=== PATIENT | male | born 1950 | race Caucasian/White ===

== ENCOUNTER 2016-05-04 16:04 | Inpatient (IN) | payer OTHER, MEDICARE ==
[~2016-05-04] VITALS: Ht 172.7 cm; Wt 62.5 kg
--- NOTE | 2016-05-04 16:34 | DIAGNOSTIC IMAGING REPORT ---
PROCEDURE: XR CHEST 1 VIEW INDICATION: CHEST PAIN TECHNIQUE: Portable AP view 04:27 p.m. COMPARISON: None. FINDINGS: Lungs are clear. Heart and mediastinum are normal. Thorax is normal. IMPRESSION: 1. Negative chest.
--- NOTE | 2016-05-04 18:18 | DIAGNOSTIC IMAGING REPORT ---
PROCEDURE: CTA THORAX WITH CONTRAST INDICATION: SHORTNESS OF BREATH TECHNIQUE: 92 ml of Isovue 370 was injected intravenously and axial images were obtained of the entire thorax with 3D sagittal and coronal MIP reconstructions. COMPARISON: Chest x-ray 05/04/2016 FINDINGS: No evidence of pulmonary emboli. There are 1 cm right middle lobe (image 74), 5 mm right lower lobe (image 76) and 9 mm right lower lobe nodules ( image 82). There is mild bilateral hilar and subcarinal adenopathy. No effusion. There is no aortic dissection or aneurysm. Mild coronary atherosclerosis. Heart size is normal. There is a 1 cm left hepatic lobe cyst but there are multiple additional subcentimeter hypoenhancing liver lesions, likely cysts or hemangiomas. 2.7 x 1.7 cm right and 2.8 x 2 cm left adrenal masses versus hypertrophy. Moderate degenerative changes of the spine. IMPRESSION: 1. No evidence of pulmonary emboli, aortic dissection or aneurysm 2. Mild ground-glass appearance of the lungs with mild adenopathy which may indicate post infectious changes 3. Pulmonary nodules, indeterminate. Recommend follow-up CT scan in 6 months 4. Bilateral adrenal masses/hypertrophy 5. 1 cm left hepatic lobe cyst with several additional subcentimeter hypoenhancing lesions, likely benign. 6. Results discussed with Dr. Jean-Baptiste
--- NOTE | 2016-05-04 19:18 | ED CLINICAL REPORT ---
Clinical Report - Physicians/Mid Levels [facility] [address] [place] [place] [place] [address] 05/04/2016 16:07 Patient: DHARMESH HSU Time Seen: 16:21. Arrived- By private vehicle. Historian- patient. HISTORY OF PRESENT ILLNESS Chief Complaint: CHEST PAIN. This started today and is now gone. It was abrupt in onset and has been intermittent. At its maximum, severity described as moderate. When seen in the E.D., it was gone. It is described as aching and it is described as located in the central chest area and radiating to the left upper extremity. No nausea or vomiting. He has had moderate difficulty breathing. (he reports left arm numbness). REVIEW OF SYSTEMS No chills, fever or sweats. He has had severe calf pain involving the right leg and left leg (chronically). It has been similar to previous episodes. All systems otherwise negative, except as recorded above. PAST HISTORY PCP - [facility]. Problems: Alcoholism. Additional Surgeries: Back Surgery. Medications: None. Allergies: No Known Drug Allergy. SOCIAL HISTORY Current every day heavy tobacco smoker (cigarette)- less than 1 pack per day. Alcohol use. Patient is a recovering alcoholic. No drug use. FAMILY HISTORY No history of aortic aneurysm or dissection. Asthma in first-degree relative (mother). cousin with DVT/PE. ADDITIONAL NOTES The nursing notes have been reviewed. PHYSICAL EXAM Vital Signs: 05/04/2016 16:20 BP: 124/67. HR: 80. RR: 18. O2 saturation: 98%. Temp: 99.2 F. Appearance: Alert. No acute distress. Eyes: Pupils equal, round and reactive to light. ENT: Pharynx normal. Neck: Normal inspection. Neck supple. CVS: Normal heart rate and rhythm. Heart sounds normal. Respiratory: No respiratory distress. Decreased air movement. Abdomen: Soft and nontender. Bowel sounds normal. No organomegaly. No mass. Back: Normal external inspection. Skin: Skin warm and dry. Normal skin color. Normal skin turgor. Extremities: Extremities exhibit normal ROM. No calf tenderness. No lower extremity edema. LABS, X-RAYS, AND EKG EKG: Normal EKG. Rate: 82. Prior EKG unavailable. The study has been independently viewed by me. Chest X-ray: No acute disease. The X-rays were independently viewed by me. Chest CT: (IMPRESSION: 1. No evidence of pulmonary emboli, aortic dissection or aneurysm 2. Mild ground-glass appearance of the lungs with mild adenopathy which may indicate post infectious changes 3. Pulmonary nodules, indeterminate. Recommend follow-up CT scan in 6 months 4. Bilateral adrenal masses/hypertrophy 5. 1 cm left hepatic lobe cyst with several additional subcentimeter hypoenhancing lesions, likely benign.). The study was interpreted contemporaneously by me and discussed with the radiologist. Laboratory Tests: UA-Culture if indicated: (DEBBI: 05/04/2016 18:08) ( [facility] 05/04/2016 18:37) Final results Test Result Flag Units (Reference) URINE COLOR YELLOW URINE APPEARANCE CLEAR URINE GLUCOSE NEGATIVE (NEGATIVE) URINE BILIRUBIN NEGATIVE (NEGATIVE) URINE KETONE NEGATIVE (NEGATIVE) URINE SPECIFIC GRAVITY 1.010 (1.010-1.030) URINE PH 6.5 (5.0-8.0) URINE PROTEIN NEGATIVE (NEGATIVE) URINE UROBILINOGEN 0.2 EU/dL (0.2-1.0) URINE NITRITE NEGATIVE (NEGATIVE) URINE BLOOD NEGATIVE (NEGATIVE) URINE LEUK ESTERASE NEGATIVE (NEGATIVE) URINE RBC NONE SEEN rbc/hpf (0-1) URINE WBC NONE SEEN wbc/hpf (0-1) URINE EPITHELIAL CELLS 0-1 EPI/hpf (0-5) URINE BACTERIA NONE SEEN (NONE SEEN) URINE COMMENT CULT NOT INDICATED URINE CULTURES ARE SET-UP BASED ON THE FOLLOWING CRITERIA:POSITIVE NITRITEPOSITIVE LEUKOCYTE ESTERASEGREATER THAN 10 WHITE BLOOD CELLSMODERATE (2+) OR GREATER BACTERIA CBC w Diff: (DEBBI: 05/04/2016 16:17) ( [facility] 05/04/2016 16:29) Final results Test Result Flag Units (Reference) WHITE BLOOD COUNT 5.3 K/uL (4.5-11.5) RED BLOOD COUNT 4.49 L M/uL (4.50-5.90) HEMOGLOBIN 13.4 L gm/dL (13.5-17.5) HEMATOCRIT 40.0 L % (41.0-53.0) MEAN CELL VOLUME 89 fL (80-100) MEAN CORPUSCULAR HGB 30 pg (26-34) MEAN CORPUSCULAR HGB CONC 34 g/dL (31-37) RED CELL DISTRIBUTION WIDTH 14.1 % (11.6-14.8) PLATELET COUNT 205 K/uL (150-400) NEUTROPHIL % 60.8 % (50-75) LYMPH % 25.8 % (25-40) MONO % 9.8 % (3-14) EOSINOPHIL % 3.1 % (0-4) BASOPHIL % 0.5 % (0-2) PT with INR: (DEBBI: 05/04/2016 16:17) ( MsgRcvd 05/04/2016 16:36) Final results Test Result Flag Units (Reference) INR 1.0 (0.8-1.2) Low Intensity Therapy: INR 1.5-2.0 PT range 18.5-23.1Mod.Intensity Therapy: INR 2.0-3.0 PT range 23.1-31.5High Intensity Therapy: INR 2.5-3.5 PT range 27.4-35.5High Intensity Therapy 2: INR 3.0-4.0 PT range 31.5-39.3 APTT 31 SECONDS (24-34) D-DIMER QUANTITATIVE 0.59 H ug/mLFEU (0.27-0.52) The primary value of this quantitative assay relates toits negative predictive value (i.e. exclusion) of pulmonaryembolism/deep vein thrombosis/DIC.Elevated levels of d-dimer may also occur with:, age, cancer, inflammation, liver disease,post-op, infection, hematoma, coronary disease, peripheralarteriopathy, bleeding disorders and thrombolytic treatment.Results should be correlated with other clinical andradiological data.Testing Methodology: Latex Immunoassay BNP: (DEBBI: 05/04/2016 16:17) ( MsgRcvd 05/04/2016 16:51) Final results Test Result Flag Units (Reference) B-TYPE NATRIURETIC PEPTIDE 14.5 pg/ml (5-100) CMP: (DEBBI: 05/04/2016 16:17) ( MsgRcvd 05/04/2016 16:42) Final results Test Result Flag Units (Reference) GLUCOSE 133 H mg/dL (70-110) BUN 10 mg/dL (7-18) CREATININE 1.1 mg/dL (0.6-1.3) Estimated GFR >60 mL/min Estimated GFR- >60 mL/min Note: Persistent reduction over 3 months in eGFR<60 mL/min/1.73 m2 defines CKD. Patients with eGFR values>=60 mL/min/1.73 m2 may also have CKD if evidence ofpersistent proteinuria. Additional information may be foundat www.kidney.org. SODIUM 137 mmol/L (136-145) POTASSIUM 3.6 mmol/L (3.5-5.1) CHLORIDE 102 mmol/L (98-107) CARBON DIOXIDE 24 mmol/L (21-32) CALCIUM 7.9 L mg/dL (8.5-10.1) TOTAL PROTEIN 6.9 g/dL (6.4-8.2) ALBUMIN 3.1 L g/dL (3.3-5.0) BILIRUBIN, TOTAL 0.2 mg/dL (0.0-1.0) ALKALINE PHOSPHATASE 77 U/L (46-116) AST (SGOT) 22 U/L (15-37) ALT (SGPT) 28 U/L (12-78) LIPASE 176 U/L (73-393) AMYLASE 38 U/L (25-115) CPK 98 U/L (24-260) TROPONIN I <0.05 ng/mL (0.00-1.5) TROPONIN REFERENCE RANGE:<0.1 NEGATIVE0.1-1.5 INDETERMINANT>1.5 POSITIVE . PROGRESS AND PROCEDURES Course of Care: Patient is stable. Discussed case with hospitalist, (Ede). Reviewed need for additional work-up. Agreed upon treatment plan and decision to place in observation. Patient/family counseled. Old medical records ordered. Disposition: Admitted. Observation. CLINICAL IMPRESSION Chest pain. Pulmonary nodule. Paresthesia (Left upper extremity). (Electronically signed by Henrique Jean-Baptiste MD 05/04/2016 21:06)
--- NOTE | 2016-05-04 19:18 | ED CLINICAL REPORT ---
Clinical Report - Physicians/Mid Levels [facility] [address] [place] [address] 05/04/2016 16:07 Patient: DHARMESH HSU Time Seen: 16:21. Arrived- By private vehicle. Historian- patient. HISTORY OF PRESENT ILLNESS Chief Complaint: CHEST PAIN. This started today and is now gone. It was abrupt in onset and has been intermittent. At its maximum, severity described as moderate. When seen in the E.D., it was gone. It is described as aching and it is described as located in the central chest area and radiating to the left upper extremity. No nausea or vomiting. He has had moderate difficulty breathing. (he reports left arm numbness). REVIEW OF SYSTEMS No chills, fever or sweats. He has had severe calf pain involving the right leg and left leg (chronically). It has been similar to previous episodes. All systems otherwise negative, except as recorded above. PAST HISTORY PCP - [facility]. Problems: Alcoholism. Additional Surgeries: Back Surgery. Medications: None. Allergies: No Known Drug Allergy. SOCIAL HISTORY Current every day heavy tobacco smoker (cigarette)- less than 1 pack per day. Alcohol use. Patient is a recovering alcoholic. No drug use. FAMILY HISTORY No history of aortic aneurysm or dissection. Asthma in first-degree relative (mother). cousin with DVT/PE. ADDITIONAL NOTES The nursing notes have been reviewed. PHYSICAL EXAM Vital Signs: 05/04/2016 16:20 BP: 124/67. HR: 80. RR: 18. O2 saturation: 98%. Temp: 99.2 F. Appearance: Alert. No acute distress. Eyes: Pupils equal, round and reactive to light. ENT: Pharynx normal. Neck: Normal inspection. Neck supple. CVS: Normal heart rate and rhythm. Heart sounds normal. Respiratory: No respiratory distress. Decreased air movement. Abdomen: Soft and nontender. Bowel sounds normal. No organomegaly. No mass. Back: Normal external inspection. Skin: Skin warm and dry. Normal skin color. Normal skin turgor. Extremities: Extremities exhibit normal ROM. No calf tenderness. No lower extremity edema. LABS, X-RAYS, AND EKG EKG: Normal EKG. Rate: 82. Prior EKG unavailable. The study has been independently viewed by me. Chest X-ray: No acute disease. The X-rays were independently viewed by me. Chest CT: (IMPRESSION: 1. No evidence of pulmonary emboli, aortic dissection or aneurysm 2. Mild ground-glass appearance of the lungs with mild adenopathy which may indicate post infectious changes 3. Pulmonary nodules, indeterminate. Recommend follow-up CT scan in 6 months 4. Bilateral adrenal masses/hypertrophy 5. 1 cm left hepatic lobe cyst with several additional subcentimeter hypoenhancing lesions, likely benign.). The study was interpreted contemporaneously by me and discussed with the radiologist. Laboratory Tests: UA-Culture if indicated: (DEBBI: 05/04/2016 18:08) ( [facility]37[facility] Final results Test Result Flag Units (Reference) URINE COLOR YELLOW URINE APPEARANCE CLEAR URINE GLUCOSE NEGATIVE (NEGATIVE) URINE BILIRUBIN NEGATIVE (NEGATIVE) URINE KETONE NEGATIVE (NEGATIVE) URINE SPECIFIC GRAVITY 1.010 (1.010-1.030) URINE PH 6.5 (5.0-8.0) URINE PROTEIN NEGATIVE (NEGATIVE) URINE UROBILINOGEN 0.2 EU/dL (0.2-1.0) URINE NITRITE NEGATIVE (NEGATIVE) URINE BLOOD NEGATIVE (NEGATIVE) URINE LEUK ESTERASE NEGATIVE (NEGATIVE) URINE RBC NONE SEEN rbc/hpf (0-1) URINE WBC NONE SEEN wbc/hpf (0-1) URINE EPITHELIAL CELLS 0-1 EPI/hpf (0-5) URINE BACTERIA NONE SEEN (NONE SEEN) URINE COMMENT CULT NOT INDICATED URINE CULTURES ARE SET-UP BASED ON THE FOLLOWING CRITERIA:POSITIVE NITRITEPOSITIVE LEUKOCYTE ESTERASEGREATER THAN 10 WHITE BLOOD CELLSMODERATE (2+) OR GREATER BACTERIA CBC w Diff: (DEBBI: 05/04/2016 16:17) ( [facility] 16:29) Final results Test Result Flag Units (Reference) WHITE BLOOD COUNT 5.3 K/uL (4.5-11.5) RED BLOOD COUNT 4.49 L M/uL (4.50-5.90) HEMOGLOBIN 13.4 L gm/dL (13.5-17.5) HEMATOCRIT 40.0 L % (41.0-53.0) MEAN CELL VOLUME 89 fL (80-100) MEAN CORPUSCULAR HGB 30 pg (26-34) MEAN CORPUSCULAR HGB CONC 34 g/dL (31-37) RED CELL DISTRIBUTION WIDTH 14.1 % (11.6-14.8) PLATELET COUNT 205 K/uL (150-400) NEUTROPHIL % 60.8 % (50-75) LYMPH % 25.8 % (25-40) MONO % 9.8 % (3-14) EOSINOPHIL % 3.1 % (0-4) BASOPHIL % 0.5 % (0-2) PT with INR: (DEBBI: 05/04/2016 16:17) ( MsgRcvd 05/04/2016 16:36) Final results Test Result Flag Units (Reference) INR 1.0 (0.8-1.2) Low Intensity Therapy: INR 1.5-2.0 PT range 18.5-23.1Mod.Intensity Therapy: INR 2.0-3.0 PT range 23.1-31.5High Intensity Therapy: INR 2.5-3.5 PT range 27.4-35.5High Intensity Therapy 2: INR 3.0-4.0 PT range 31.5-39.3 APTT 31 SECONDS (24-34) D-DIMER QUANTITATIVE 0.59 H ug/mLFEU (0.27-0.52) The primary value of this quantitative assay relates toits negative predictive value (i.e. exclusion) of pulmonaryembolism/deep vein thrombosis/DIC.Elevated levels of d-dimer may also occur with:, age, cancer, inflammation, liver disease,post-op, infection, hematoma, coronary disease, peripheralarteriopathy, bleeding disorders and thrombolytic treatment.Results should be correlated with other clinical andradiological data.Testing Methodology: Latex Immunoassay BNP: (DEBBI: 05/04/2016 16:17) ( MsgRcvd 05/04/2016 16:51) Final results Test Result Flag Units (Reference) B-TYPE NATRIURETIC PEPTIDE 14.5 pg/ml (5-100) CMP: (DEBBI: 05/04/2016 16:17) ( MsgRcvd 05/04/2016 16:42) Final results Test Result Flag Units (Reference) GLUCOSE 133 H mg/dL (70-110) BUN 10 mg/dL (7-18) CREATININE 1.1 mg/dL (0.6-1.3) Estimated GFR >60 mL/min Estimated GFR- >60 mL/min Note: Persistent reduction over 3 months in eGFR<60 mL/min/1.73 m2 defines CKD. Patients with eGFR values>=60 mL/min/1.73 m2 may also have CKD if evidence ofpersistent proteinuria. Additional information may be foundat www.kidney.org. SODIUM 137 mmol/L (136-145) POTASSIUM 3.6 mmol/L (3.5-5.1) CHLORIDE 102 mmol/L (98-107) CARBON DIOXIDE 24 mmol/L (21-32) CALCIUM 7.9 L mg/dL (8.5-10.1) TOTAL PROTEIN 6.9 g/dL (6.4-8.2) ALBUMIN 3.1 L g/dL (3.3-5.0) BILIRUBIN, TOTAL 0.2 mg/dL (0.0-1.0) ALKALINE PHOSPHATASE 77 U/L (46-116) AST (SGOT) 22 U/L (15-37) ALT (SGPT) 28 U/L (12-78) LIPASE 176 U/L (73-393) AMYLASE 38 U/L (25-115) CPK 98 U/L (24-260) TROPONIN I <0.05 ng/mL (0.00-1.5) TROPONIN REFERENCE RANGE:<0.1 NEGATIVE0.1-1.5 INDETERMINANT>1.5 POSITIVE . PROGRESS AND PROCEDURES Course of Care: Patient is stable. Discussed case with hospitalist, (Ede). Reviewed need for additional work-up. Agreed upon treatment plan and decision to place in observation. Patient/family counseled. Old medical records ordered. Disposition: Admitted. Observation. CLINICAL IMPRESSION Chest pain. Pulmonary nodule. Paresthesia (Left upper extremity). (Electronically signed by Henrique Jean-Baptiste MD 05/04/2016 21:06)
--- NOTE | 2016-05-04 19:19 | ED ORDER SUMMARY ---
..... Patient: DHARMESH HSU OrderSheet [facility] VisitID: [id number] [address] [place] [address] 66y, M Registration Date/Time: 05/04/2016 ORDER SHEET Weight: 86.1 kg Allergies: No Known Drug Allergy GENERAL ORDERS: Chest 1V Urgent (16:05/04/2016 Rex PAULA) (Ack 16:27 Norma) (18:49 MCampbell) CBC w Diff Urgent (16:05/04/2016 Rex PAULA) (Ack 16:27 Norma) (16:27 EBonham) CMP Urgent (16:05/04/2016 Rex PAULA) (Ack 16:27 Norma) (16:27 EBonham) UA-Culture if indicated Urgent (16:05/04/2016 Rex PAULA) (Ack 16:27 Norma) (16:27 EBonham) PT with INR Urgent (16:05/04/2016 Rex PAULA) (Ack 16:27 Norma) (16:27 EBonham) PTT Urgent (16:05/04/2016 Rex PAULA) (Ack 16:27 Norma) (16:27 EBonham) D-Dimer Urgent (16:05/04/2016 Rex PAULA) (Ack 16:27 Norma) (16:27 EBonham) BNP Urgent (16:05/04/2016 Rex PAULA) (Ack 16:27 Norma) (16:27 EBonham) Amylase Urgent (16:05/04/2016 Rex PAULA) (Ack 16:27 Norma) (16:27 EBonham) Lipase Urgent (16:05/04/2016 Rex PAULA) (Ack 16:27 Norma) (16:27 EBonham) CPK Urgent (16:05/04/2016 Rex PAULA) (Ack 16:27 Norma) (16:27 EBonham) Troponin-I Urgent (16:05/04/2016 Rex PAULA) (Ack 16:27 Norma) (16:27 EBonham) CTA Thorax w Cont (No) (See report) Urgent (17:16 05/04/2016 Rex PAULA) (Ack 17:29 Norma) (18:49 Nydia) MEDICATION ORDERS: Aspirin PO 325 mg (NOW) (16:22 05/04/2016 Rex PAULA) (16:28 Carlos) NitroGLYCERIN SL 0.4 mg (x3 PRN Chest Pain) (19:25 05/04/2016 Rex PAULA) (Ack 19:49 Carlos) IV FLUIDS: IV Saline Lock (16:05/04/2016 Rex PAULA) (16:28 Carlos) ORDER SHEET NOTES: [Electronically signed by Lupe Leo (20:29 05/04/2016)] [Electronically signed by Henrique Jean-Baptiste MD (21:06 05/04/2016)] [Electronically locked/signed by Lupe Leo (20:29 05/04/2016)]
--- NOTE | 2016-05-04 19:19 | ED ORDER SUMMARY ---
..... Patient: DHARMESH HSU OrderSheet [facility] VisitID: [id number] [address] [place] [address] 66y, M Registration Date/Time: 05/04/2016 ORDER SHEET Weight: 86.1 kg Allergies: No Known Drug Allergy GENERAL ORDERS: Chest 1V Urgent (16:05/04/2016 Rex PAULA) (Ack 16:27 Norma) (18:49 MCampbell) CBC w Diff Urgent (16:05/04/2016 Rex PAULA) (Ack 16:27 Norma) (16:27 EBonham) CMP Urgent (16:05/04/2016 Rex PAULA) (Ack 16:27 Norma) (16:27 EBonham) UA-Culture if indicated Urgent (16:05/04/2016 Rex PAULA) (Ack 16:27 Norma) (16:27 EBonham) PT with INR Urgent (16:05/04/2016 Rex PAULA) (Ack 16:27 Norma) (16:27 EBonham) PTT Urgent (16:05/04/2016 Rex PAULA) (Ack 16:27 Norma) (16:27 EBonham) D-Dimer Urgent (16:05/04/2016 Rex PAULA) (Ack 16:27 Norma) (16:27 EBonham) BNP Urgent (16:05/04/2016 Rex PAULA) (Ack 16:27 Norma) (16:27 EBonham) Amylase Urgent (16:05/04/2016 Rex PAULA) (Ack 16:27 Norma) (16:27 EBonham) Lipase Urgent (16:05/04/2016 Rex PAULA) (Ack 16:27 Norma) (16:27 EBonham) CPK Urgent (16:05/04/2016 Rex PAULA) (Ack 16:27 Norma) (16:27 EBonham) Troponin-I Urgent (16:05/04/2016 Rex PAULA) (Ack 16:27 Norma) (16:27 EBonham) CTA Thorax w Cont (No) (See report) Urgent (17:16 05/04/2016 Rex PAULA) (Ack 17:29 Norma) (18:49 Nydia) MEDICATION ORDERS: Aspirin PO 325 mg (NOW) (16:22 05/04/2016 Rex PAULA) (16:28 Carlos) NitroGLYCERIN SL 0.4 mg (x3 PRN Chest Pain) (19:25 05/04/2016 Rex PAULA) (Ack 19:49 Carlos) IV FLUIDS: IV Saline Lock (16:05/04/2016 Rex PAULA) (16:28 Carlos) ORDER SHEET NOTES: [Electronically signed by Lupe Leo (20:29 05/04/2016)] [Electronically signed by Henrique Jean-Baptiste MD (21:06 05/04/2016)] [Electronically locked/signed by Lupe Leo (20:29 05/04/2016)]
--- NOTE | 2016-05-04 19:19 | ED NURSING NOTES ---
Clinical Report - Nurses [facility] [address] [place] [address] 05/04/2016 16:07 Patient: DHARMESH HSU TRIAGE Triage time 1610. Acuity: LEVEL 2. Chief Complaint: CHEST PAIN and LEFT ARM PAIN and INDIGESTION. Alert. No acute distress. (in pain). --16:24 Lupe Leo 16:20 05/04/16. BP: 124/67. HR: 80. RR: 18. O2 saturation: 98%. Temp: 99.2 F. Pain level now 11/26. --16:24 Lupe Leo. Weight: 86.1 kg. Height/Length: 68 inches. BMI: 28.9. --16:20 Lupe Leo. Medications None. --16:22 Lupe Leo. Allergies No Known Drug Allergy. --16:22 Lupe Leo. History Arrived by private vehicle. Historian: patient. Accompanied by family. Onset. (2 months ago). ( Pt has had 2 months of intermittent left arm pain and numbness, episodes of chest pain lasting a few minutes without alleviating or causing factors noted, and indigestion and gas, last 24 hrs sxs are severe, pt appears to be in significant pain, brought straight back for triage and care). ( Pt denies any other sxs such as dyspnea, n/v or diaphoresis, made him come in, pt had to leave work due to pain). SOCIAL HX: Heavy tobacco smoker (cigarette)- 1 pack per day. Alcohol use. Last drink was 1. Patient is a recovering alcoholic. (last drink 40+ years ago). FALL RISK ASSESSMENT: Fall risk assessment completed. No fall risk identified. NUTRITIONAL RISK ASSESSMENT: The nutritional risk assessment revealed no deficiencies. FUNCTIONAL ASSESSMENT: Functional assessment: no impairments noted. LEARNING NEEDS ASSESSMENT: The learning needs assessment revealed no barriers. SKIN INTEGRITY ASSESSMENT: Skin integrity risk assessment completed. No skin integrity risk identified. --16:24 Lupe Leo. PROBLEMS: Alcoholism. --16:22 Lupe Leo. ADDITIONAL SURGERIES: Back Surgery. --16:22 Lupe Leo. Interventions ID band on patient. To treatment room. --16:24 Lupe Leo. PHYSICAL ASSESSMENT Ambulatory to room. Patient gowned. GENERAL / NEURO / PSYCH: Alert. Oriented X 4. Appears in pain and in distress. HEENT: Mucous membranes are pink. RESPIRATORY: Respirations not labored. Chest nontender. Breath sounds within normal limits. CVS: Normal sinus rhythm noted. Heart sounds within normal limits. Pulses within normal limits. Capillary refill less than 2 seconds. GI / : Abdomen soft and nontender. EXTREMITIES: No lower extremity edema. SKIN: Skin is warm and dry. Normal skin turgor. Skin is non-tender. --16:25 Lupe Leo. NURSING PROGRESS NOTES The plan of care for this patient has been created. Monitoring of patient in place. Patient gowned. Head of bed elevated. Reassurance given. Two patient identifiers checked. Call light placed in reach. Side rails up x 1. Bed placed in lowest position. Brakes of bed on. Patient ready for evaluation- chart flagged. Patient and family informed about plan of care. Patient waiting for evaluation. --16:26 Lupe Leo 16:27 05/04/2016 Site #1 started via IV in the left forearm with an 18g angiocath, with aseptic technique and good blood return; one attempt. Blood drawn: rainbow set. Labeled in the presence of the patient and sent to the lab. Saline lock flushed with 10 mL saline. --16:27 Lupe Leo 16:28 05/04/2016 Aspirin PO 325 mg given. Allergies verified and confirmed 5 rights. --16:28 Lupe Leo ( Urine collected and sent to lab, pt resting quietly with family at bedside, having intermittent episodes of left arm pain). --18:15 Lupe Leo 17:55 05/04/16. BP: 132/80. HR: 73. RR: 19. O2 saturation: 98%. --18:26 uLpe Leo 16:55 05/04/16. BP: 124/72. HR: 76. RR: 20. O2 saturation: 98%. --18:27 Lupe Leo 19:25 05/04/16. BP: 119/97. HR: 68. RR: 16. O2 saturation: 95%. --19:50 Lupe Leo 18:55 05/04/16. BP: 127/75. HR: 70. RR: 16. O2 saturation: 96%. --19:51 Lupe Leo 18:25 05/04/16. BP: 126/78. HR: 70. O2 saturation: 99%. --19:52 Lupe Leo 17:55 05/04/16. BP: 132/80. HR: 73. RR: 19. O2 saturation: 98%. --19:52 Lupe Leo ( Pt has been monitored throughout stay, no ectopy or st elevation noted, pt has remained calm co operative and stable, family has been at bedside, pt used bedside urinal for UA sample, tolerated well, no assessment changes throughtout stay). --20:25 Lupe Leo. DISPOSITION / DISCHARGE Condition at departure: improved and stable. Disposition: observation (203). Transported via stretcher. Report was given to a nurse via a phone call. Report included patient's care, treatment, medications, reviewed medication reconcilliation, and condition (including any recent changes or anticipated changes). All questions were answered. Report was acknowledged and care was transferred. (CatRN). --20:23 Lupe Leo. Locked/Released at 05/04/2016 20:29 by Lupe Leo,
[2016-05-04 20:52] VITALS: BP 119/73
--- NOTE | 2016-05-04 21:07 | ED MED RECONCILIATION SUMMARY ---
Patient: DHARMESH HSU Medication Reconciliation Report [facility] VisitID: [id number] [address] [place] [address] 66y, M Registration Date/Time: 05/04/2016 Weight: 86.1 kg Height/Length: 68 in. BMI: 28.9 ALLERGIES: No Known Drug Allergy The patient's Home Medications are listed below: NONE. The source(s) of the original Home Medication information: Not obtained. The following Medications were given to the patient in the Emergency Department: Aspirin [PO] PO 325 mg, administered: 05/04/2016 4:28:00 PM The following Medications were prescribed to the patient: None.
--- NOTE | 2016-05-04 21:07 | ED DISCHARGE INSTRUCTIONS ---
Patient: DHARMESH HSU General Instructions [facility] VisitID: [id number] [place] [address] 66y, M Registration Date/Time: 05/04/2016 Chest pain. Pulmonary nodule. Paresthesia (Left upper extremity). ADDITIONAL INFORMATION Paraesthesias Paraesthesia refers to a burning or prickling sensation that is sometimes felt in the hands, arms, legs or feet. It can also occur in other parts of the body. It can also feel like tingling or numbness, skin crawling or itching.The sensation is usually painless. Most people have experienced pins and needles. This feeling happens when legs have been crossed for too long and pressure is placed on a nerve. This is a temporary paraesthesia. It quickly goes away once the pressure is relieved. There are many possible causes for chronic paraesthesias. These include such disorders as stroke, herniated disk (pressing on a nerve), trapped nerve in the shoulder, elbow or wrist (such as carpal tunnel syndrome), vitamin deficiencies or even certain medicines. Laboratory tests are needed to make an accurate diagnosis. These tests may include blood tests, X-ray, CT (computerized tomography) scan or a muscle test (electromyography).Depending on the cause, treatment may include physical therapy. Home Care: Do not make any changes to your medicines without advice from your doctor. If vitamins have been prescribed, remember to take them daily at the recommended dose. Because of a decrease in feeling, a numb hand or foot may be more prone to injury. Take care to protect these areas from cuts, bumps, bruises, quinn or other injury. Keep your nails trimmed and wash your hands and feet often. Wear shoes that fit well to avoid pressure points, blisters and ulcers. Look at your hands and feet carefully (including the soles of your feet and between your toes) at least once a week and notify your doctor of any open wounds or signs of infection. Follow Up with your doctor or as advised by our staff. You may need further testing to determine the exact cause of your paraesthesia. [NOTE: If blood tests, X-ray, CT scan or electromyography were done, specialists will review them. You will be notified of any new findings that may affect your care.] Get Prompt Medical Attention if any of the following occur: Numbness or weakness of the face, one arm or one leg Slurred speech, confusion, trouble speaking, walking or seeing Severe headache, fainting spell, dizziness or seizure Chest, arm, neck or upper back pain Loss of bladder or bowel control Open wound with redness, swelling or pus Pulmonary Nodule A pulmonary nodule is a finding on a chest x-ray. It is usually found on an x-ray taken for other reasons.It is a single lesion up to about an inch in size, surrounded by normal lung tissue. Most nodules are benign (non-cancerous). However, a nodule could be an early stage of primary lung cancer; or, it may be a sign of cancer that has spread from another part of the body (metastatic). Once a nodule is found on a chest x-ray, further testing is needed to determine if it is benign or outpatient to diagnose your nodule. Comparison of todays x-ray to prior x-rays Chest CT scan Bronchoscopy (a procedure that allows the doctor to see the air passages inside the lung) Needle biopsy Test Results: If your nodule proves to be benign, continued follow up over the next five years is usually advised. If the tests cannot tell if your nodule is benign or malignant, then, surgery may be advised. If your tests show your nodule is definitely malignant, surgery will probably be advised. The best survival rates from lung cancer occur when the primary tumor is small (less than one inch). Follow your doctor's advice regarding the timing of further testing. Prompt treatment gives the best chance for curing lung cancer. Prevention Smoking remains one of the greatest risk factors for lung cancer. If you smoke, it is essential that you quit in order to lower your risk of lung cancer. Talk to your doctor about ways to help you quit. Visit the following links for more information: www.smokefree.gov/pubs/clearing_the_air.pdf www.smokefree.gov www.quitnet.com Home Care: Most patients with a pulmonary nodule will have no symptoms. Therefore, no special home care is required.You may resume your usual activities and diet. Follow Up with your doctor or as advised by our staff. Keep your appointments for further testing. You can get more information about lung cancer from the following: [place] Lung Association [phone] lung.org National Cancer [place] [phone] www.cancer.gov Return Promptly or contact your doctor if any of the following occur: Fever of 100.4F (38C) or higher, or as directed by your healthcare provider Coughing up blood Chest pain or shortness of breath Unintended weight change You have been given the following additional information: Paraesthesias Pulmonary Nodule, Solitary (Electronically signed by Henrique Jean-Baptiste MD 05/04/2016 21:06)
--- NOTE | 2016-05-04 21:07 | ED MAR SUMMARY ---
..... Medication Administration Record [facility] [address] [place] [address] Patient: DHARMESH HSU Visit ID: [id number] 66y, M Weight: 86.1 kg Height/Length: 68 in BMI: 28.9 ALLERGIES: No Known Drug Allergy Given 16:28 05/04/2016 Lupe Leo, Medication Administered: ASPIRIN [PO], Dose: 325 mg PO. Medication Ordered: Aspirin PO 325 mg (NOW).
--- NOTE | 2016-05-04 21:07 | ED MED RECONCILIATION SUMMARY ---
Patient: DHARMESH HSU Medication Reconciliation Report [facility] VisitID: [id number] [address] [place] [address] 66y, M Registration Date/Time: 05/04/2016 Weight: 86.1 kg Height/Length: 68 in. BMI: 28.9 ALLERGIES: No Known Drug Allergy The patient's Home Medications are listed below: NONE. The source(s) of the original Home Medication information: Not obtained. The following Medications were given to the patient in the Emergency Department: Aspirin [PO] PO 325 mg, administered: 05/04/2016 4:28:00 PM The following Medications were prescribed to the patient: None.
--- NOTE | 2016-05-04 21:07 | ED MAR SUMMARY ---
..... Medication Administration Record [facility] [address] [place] [address] Patient: DHARMESH HSU Visit ID: [id number] 66y, M Weight: 86.1 kg Height/Length: 68 in BMI: 28.9 ALLERGIES: No Known Drug Allergy Given 16:28 05/04/2016 Lupe Leo, Medication Administered: ASPIRIN [PO], Dose: 325 mg PO. Medication Ordered: Aspirin PO 325 mg (NOW).
--- NOTE | 2016-05-04 21:39 | HISTORY AND PHYSICAL ---
ADMITTED: 05/04/2016 CHIEF COMPLAINT: 1. Chest and left arm pain HISTORY OF PRESENT ILLNESS: A 66-year-old male presents to [facility] Emergency Department with a 1-2 month history of increasingly frequent and severe intermittent left arm pain and numbness and short episodes of sharp chest pain lasting from seconds to minutes. The patient is unable to identify any factors that make the pain worse. He does note he has some indigestion and gas, which has been more bothersome, especially in the last 24 hours. He notes also the left arm pain was quite severe today. He had no pain when he got up this morning. He walked out to his truck, got in his truck and began to drive, had immediate sharp pain lasting about a minute in the left arm. It then settled down to a dull ache, which has persisted all day, associated with numbness in the hand and a feeling of weakness in the smoking pipes cleaner on the left hand. He denies associated nausea, vomiting, diaphoresis, shortness of breath or palpitations. He does note that he has had some pain at the base of the neck slightly to the left of the spine and that area is tender. He notes when it is pushed on he does get more pain in his left arm. The patient's discomfort today was severe enough to make him leave work. He has not previously left work due to the pain, although he has had similar pain, somewhat milder off and on over the last 2 months. MEDICAL/SURGICAL HISTORY: Surgeries: None. MEDICATIONS: 1. None. ALLERGIES: 1. NONE. SOCIAL HISTORY: male with 6 children. and 2 sons are present ("the better ones"). 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 Habits: Smoking: One pack per day, patient has smoked all his life. Alcohol use: None. The patient last drank 40 years ago, he is a recovering alcoholic. Drug use: None. FAMILY HISTORY: Mother had asthma. He thinks an aunt may have had cancer, but does not know what type and is uncertain. REVIEW OF SYSTEMS: General: The patient denies fevers, chills, or fatigue. HEENT : The patient denies vision change, hearing change or sore throat. He does admit to a runny nose in the last week. He last had a flu approximately a month ago. Respiratory: Denies cough, wheezing, or shortness of breath. Cardiac: See above. Gastrointestinal: Denies diarrhea, constipation, nausea, vomiting, melena, or bright red blood per rectum. Genitourinary: Denies dysuria, frequency or history of stones. Musculoskeletal: Denies joint swelling, injury or low back pain. Dermatologic: Denies rash, itching or skin lesions. PHYSICAL EXAMINATION: GENERAL: Well-developed, well-nourished male in no acute distress. VITAL SIGNS: Blood pressure 124/67, heart rate 80, respirations 18, SaO2 98%, temperature 99.2. Pain level 9/10 on arrival in the emergency department. HEENT: Clear. NECK: Supple without adenopathy or thyromegaly. The patient has no increased symptomatology with neck rotation, flexion, extension or side bending. There is tenderness at the base of the neck on the left, probably just below C6. Pressure on this point has caused radiating pain down the left arm and makes the patient jump somewhat. LUNGS: Clear to auscultation and percussion. HEART: Regular rate and rhythm without murmur. ABDOMEN: Positive bowel sounds. Soft, nontender, without hepatosplenomegaly or masses. BACK: Straight without CVA tenderness. EXTREMITIES: Without cyanosis, clubbing, or edema. NEUROLOGIC: Grossly intact and symmetric. The patient has a subjective sensation of numbness and weakness in the left arm, though on testing he has 5/5 smoking pipes cleaner bilaterally and can feel light touch without difficulty. Deep tendon reflexes are 1+, symmetric in the arms. SKIN: Unremarkable. GENITAL: Deferred. RECTAL: Deferred. LAB/IMAGING: Laboratories: WBC 5.3, hemoglobin 13.4, hematocrit 40.0, platelets 205,000. Urinalysis clear, specific gravity 1.010, pH 6.5. Sodium 137, potassium 3.6, chloride 102, bicarb 24, calcium 7.9, total protein 6.9, glucose 133, BUN 10, creatinine 1.1. Albumin 3.1, alk phos 77, AST 22, ALT 28, lipase 176, amylase 38. D-dimer elevated at 0.59. INR 1.0. CK 98. Troponin less than 0.05. BNP 14.5. Imaging: Chest x-ray is negative. CT angiogram: Shows no evidence of pulmonary emboli, aortic dissection or aneurysm, mild ground-glass appearance with mild adenopathy is noted, consistent with post- infectious changes. Pulmonary nodules, indeterminate with recommendation by radiology for repeat followup CT in 6 months. Bilateral adrenal hypertrophy is noted, 1 cm left hepatic lobe cyst with several additional subcentimeter hypoenhancing lesions, probably benign. IMPRESSION: 1. Atypical chest pain, rule out myocardial infarction. 2. Cervical radiculopathy, left-sided. 3. Smoking history. 4. CT with pulmonary nodules, ground-glass appearance and mild adenopathy, probably benign, with recommendation from radiology for repeat CT in 6 months. PLAN: Admit to [facility] for rule out myocardial infarction protocol. We will obtain cervical spine x-rays. Anticipate patient will need either physical therapy or chiropractic treatment for cervical radiculopathy.
--- NOTE | 2016-05-04 21:39 | HISTORY AND PHYSICAL ---
ADMITTED: 05/04/2016 CHIEF COMPLAINT: 1. Chest and left arm pain HISTORY OF PRESENT ILLNESS: A 66-year-old male presents to [facility] Emergency Department with a 1-2 month history of increasingly frequent and severe intermittent left arm pain and numbness and short episodes of sharp chest pain lasting from seconds to minutes. The patient is unable to identify any factors that make the pain worse. He does note he has some indigestion and gas, which has been more bothersome, especially in the last 24 hours. He notes also the left arm pain was quite severe today. He had no pain when he got up this morning. He walked out to his truck, got in his truck and began to drive, had immediate sharp pain lasting about a minute in the left arm. It then settled down to a dull ache, which has persisted all day, associated with numbness in the hand and a feeling of weakness in the wood crew supervisor on the left hand. He denies associated nausea, vomiting, diaphoresis, shortness of breath or palpitations. He does note that he has had some pain at the base of the neck slightly to the left of the spine and that area is tender. He notes when it is pushed on he does get more pain in his left arm. The patient's discomfort today was severe enough to make him leave work. He has not previously left work due to the pain, although he has had similar pain, somewhat milder off and on over the last 2 months. MEDICAL/SURGICAL HISTORY: Surgeries: None. MEDICATIONS: 1. None. ALLERGIES: 1. NONE. SOCIAL HISTORY: male with 6 children. and 2 sons are present ("the better ones"). 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 Habits: Smoking: One pack per day, patient has smoked all his life. Alcohol use: None. The patient last drank 40 years ago, he is a recovering alcoholic. Drug use: None. FAMILY HISTORY: Mother had asthma. He thinks an aunt may have had cancer, but does not know what type and is uncertain. REVIEW OF SYSTEMS: General: The patient denies fevers, chills, or fatigue. HEENT : The patient denies vision change, hearing change or sore throat. He does admit to a runny nose in the last week. He last had a flu approximately a month ago. Respiratory: Denies cough, wheezing, or shortness of breath. Cardiac: See above. Gastrointestinal: Denies diarrhea, constipation, nausea, vomiting, melena, or bright red blood per rectum. Genitourinary: Denies dysuria, frequency or history of stones. Musculoskeletal: Denies joint swelling, injury or low back pain. Dermatologic: Denies rash, itching or skin lesions. PHYSICAL EXAMINATION: GENERAL: Well-developed, well-nourished male in no acute distress. VITAL SIGNS: Blood pressure 124/67, heart rate 80, respirations 18, SaO2 98%, temperature 99.2. Pain level 9/10 on arrival in the emergency department. HEENT: Clear. NECK: Supple without adenopathy or thyromegaly. The patient has no increased symptomatology with neck rotation, flexion, extension or side bending. There is tenderness at the base of the neck on the left, probably just below C6. Pressure on this point has caused radiating pain down the left arm and makes the patient jump somewhat. LUNGS: Clear to auscultation and percussion. HEART: Regular rate and rhythm without murmur. ABDOMEN: Positive bowel sounds. Soft, nontender, without hepatosplenomegaly or masses. BACK: Straight without CVA tenderness. EXTREMITIES: Without cyanosis, clubbing, or edema. NEUROLOGIC: Grossly intact and symmetric. The patient has a subjective sensation of numbness and weakness in the left arm, though on testing he has 5/5 wood crew supervisor bilaterally and can feel light touch without difficulty. Deep tendon reflexes are 1+, symmetric in the arms. SKIN: Unremarkable. GENITAL: Deferred. RECTAL: Deferred. LAB/IMAGING: Laboratories: WBC 5.3, hemoglobin 13.4, hematocrit 40.0, platelets 205,000. Urinalysis clear, specific gravity 1.010, pH 6.5. Sodium 137, potassium 3.6, chloride 102, bicarb 24, calcium 7.9, total protein 6.9, glucose 133, BUN 10, creatinine 1.1. Albumin 3.1, alk phos 77, AST 22, ALT 28, lipase 176, amylase 38. D-dimer elevated at 0.59. INR 1.0. CK 98. Troponin less than 0.05. BNP 14.5. Imaging: Chest x-ray is negative. CT angiogram: Shows no evidence of pulmonary emboli, aortic dissection or aneurysm, mild ground-glass appearance with mild adenopathy is noted, consistent with post- infectious changes. Pulmonary nodules, indeterminate with recommendation by radiology for repeat followup CT in 6 months. Bilateral adrenal hypertrophy is noted, 1 cm left hepatic lobe cyst with several additional subcentimeter hypoenhancing lesions, probably benign. IMPRESSION: 1. Atypical chest pain, rule out myocardial infarction. 2. Cervical radiculopathy, left-sided. 3. Smoking history. 4. CT with pulmonary nodules, ground-glass appearance and mild adenopathy, probably benign, with recommendation from radiology for repeat CT in 6 months. PLAN: Admit to [facility] for rule out myocardial infarction protocol. We will obtain cervical spine x-rays. Anticipate patient will need either physical therapy or chiropractic treatment for cervical radiculopathy.
[2016-05-05 03:00] VITALS: BP 121/54
[2016-05-05 07:16] VITALS: BP 118/74
[2016-05-05 11:14] VITALS: BP 114/64
--- NOTE | 2016-05-05 12:53 | Provider's Discharge Care Plan ---
Problem, Goal, Plan Problem List 1. Chest pain Instructions: - secondary to nerve impingement 2. Cervical radiculopathy
--- NOTE | 2016-05-05 12:53 | Provider's Discharge Care Plan ---
Problem, Goal, Plan Problem List 1. Chest pain Instructions: - secondary to nerve impingement 2. Cervical radiculopathy
--- NOTE | 2016-05-05 12:53 | Discharge Summary ---
Discharge Summary Report Admit Date 05/04/16 Discharge Date 05/05/16 Admission Diagnosis chest pain with left arm radiation Discharge Diagnosis nerve impingement Brief History A 66-year-old male presents to [facility] Emergency Department with a 1-2 month history of increasingly frequent and severe intermittent left arm pain and numbness and short episodes of sharp chest pain lasting from seconds to minutes. The patient is unable to identify any factors that make the pain worse. He does note he has some indigestion and gas, which has been more bothersome, especially in the last 24 hours. He notes also the left arm pain was quite severe today. He had no pain when he got up this morning. He walked out to his truck, got in his truck and began to drive, had immediate sharp pain lasting about a minute in the left arm. It then settled down to a dull ache, which has persisted all day, associated with numbness in the hand and a feeling of weakness in the automobile club information clerk on the left hand. He denies associated nausea, vomiting, diaphoresis, shortness of breath or palpitations. He does note that he has had some pain at the base of the neck slightly to the left of the spine and that area is tender. He notes when it is pushed on he does get more pain in his left arm. The patient's discomfort today was severe enough to make him leave work. He has not previously left work due to the pain, although he has had similar pain, somewhat milder off and on over the last 2 months. Hospital Course Patient was admitted for chest wall pain with radiation down the arm. Patient on exam was found to have nerve impingement that was mimicing chest pain with left arm pain. Patient as a precaution was monitored overnight. Patient was found to have negative troponin levels and normal ekg. Patient will be discharged today and will follow up with his neurosurgeon General Appearance Alert, Oriented X3, No acute distress HEENT PERRLA, EOMI, Mucous membran moist/pink Lungs Clear to auscultation Cardiovascular Normal S1, Normal S2, No murmurs Abdomen Soft, No tenderness, No hepatospenomegaly Skin No Breakdown, No Significant Lesions Lab/Imaging Laboratory Tests 05/04 05/04 05/04 1617 1617 1808 Chemistry Plasma Sodium (136 - 145 mmol/L) 137 Plasma Potassium (3.5 - 5.1 mmol/L) 3.6 Plasma Chloride (98 - 107 mmol/L) 102 CO2 (Enzymatic) (21 - 32 mmol/L) 24 BUN (7 - 18 mg/dL) 10 Creatinine (0.6 - 1.3 mg/dL) 1.1 Est GFR ( Amer) (mL/min) >60 Est GFR (Non-Af Amer) (mL/min) >60 Glucose (70 - 110 mg/dL) 133 Plasma Calcium (8.5 - 10.1 mg/dL) 7.9 Total Bilirubin (0.0 - 1.0 mg/dL) 0.2 AST (15 - 37 U/L) 22 ALT (12 - 78 U/L) 28 Alkaline Phosphatase (46 - 116 U/L) 77 Creatine Kinase (24 - 260 U/L) 98 Troponin (0.00 - 1.5 ng/mL) <0.05 B-Natriuretic Peptide (5 - 100 pg/ml) 14.5 Total Protein (6.4 - 8.2 g/dL) 6.9 Albumin (3.3 - 5.0 g/dL) 3.1 Amylase (25 - 115 U/L) 38 Lipase (73 - 393 U/L) 176 Coagulation INR (0.8 - 1.2) 1.0 APTT (24 - 34 SECONDS) 31 D-Dimer, Quantitative (0.27 - 0.52 ug/mLFEU) 0.59 Hematology WBC (4.5 - 11.5 K/uL) 5.3 RBC (4.50 - 5.90 M/uL) 4.49 Hgb (13.5 - 17.5 gm/dL) 13.4 Hct (41.0 - 53.0 %) 40.0 MCV (80 - 100 fL) 89 MCH (26 - 34 pg) 30 RDW (11.6 - 14.8 %) 14.1 Neut % (Auto) (50 - 75 %) 60.8 Lymph % (Auto) (25 - 40 %) 25.8 [place] % (Auto) (3 - 14 %) 9.8 Eos % (Auto) (0 - 4 %) 3.1 Baso % (Auto) (0 - 2 %) 0.5 Plt Count, EDTA (150 - 400 K/uL) 205 PUBS MCHC (31 - 37 g/dL) 34 Urines Urine Color YELLOW Urine Appearance CLEAR Urine pH (5.0 - 8.0) 6.5 Ur Specific [place] (1.010 - 1.030) 1.010 Urine Protein (NEGATIVE) NEGATIVE Urine Ketones (NEGATIVE) NEGATIVE Urine Blood (NEGATIVE) NEGATIVE Urine Nitrite (NEGATIVE) NEGATIVE Urine Bilirubin (NEGATIVE) NEGATIVE Urine Urobilinogen (0.2 - 1.0 EU/dL) 0.2 Ur Leukocyte Esterase (NEGATIVE) NEGATIVE Urine RBC (0 - 1 rbc/hpf) NONE SEEN Urine WBC (0 - 1 wbc/hpf) NONE SEEN Ur Epithelial Cells (0 - 5 EPI/hpf) 0-1 Urine Bacteria (NONE SEEN) NONE SEEN Urine Glucose (NEGATIVE) NEGATIVE Urine Comment CULT NOT INDICATED 05/04 0405 0405 1200 Chemistry Plasma Sodium (136 - 145 mmol/L) 139 Plasma Potassium (3.5 - 5.1 mmol/L) 4.1 Plasma Chloride (98 - 107 mmol/L) 103 CO2 (Enzymatic) (21 - 32 mmol/L) 22 BUN (7 - 18 mg/dL) 13 Creatinine (0.6 - 1.3 mg/dL) 1.2 Est GFR ( Amer) (mL/min) >60 Est GFR (Non-Af Amer) (mL/min) >60 Glucose (70 - 110 mg/dL) 132 Plasma Calcium (8.5 - 10.1 mg/dL) 7.7 Plasma Magnesium (1.8 - 2.4 mg/dL) 1.9 Total Bilirubin (0.0 - 1.0 mg/dL) 0.3 AST (15 - 37 U/L) 23 ALT (12 - 78 U/L) 26 Alkaline Phosphatase (46 - 116 U/L) 77 Creatine Kinase (24 - 260 U/L) 100 103 163 Troponin (0.00 - 1.5 ng/mL) <0.05 <0.05 <0.05 Total Protein (6.4 - 8.2 g/dL) 6.4 Albumin (3.3 - 5.0 g/dL) 3.2 Hematology WBC (4.5 - 11.5 K/uL) 6.6 RBC (4.50 - 5.90 M/uL) 4.57 Hgb (13.5 - 17.5 gm/dL) 13.6 Hct (41.0 - 53.0 %) 40.9 MCV (80 - 100 fL) 90 MCH (26 - 34 pg) 30 RDW (11.6 - 14.8 %) 14.4 Neut % (Auto) (50 - 75 %) 71.8 Lymph % (Auto) (25 - 40 %) 16.3 [place] % (Auto) (3 - 14 %) 9.9 Eos % (Auto) (0 - 4 %) 1.6 Baso % (Auto) (0 - 2 %) 0.4 Plt Count, EDTA (150 - 400 K/uL) 202 PUBS MCHC (31 - 37 g/dL) 33 Discharge Instructions/Meds - follow up with your neurosurgeon - no restrictions at the moment
== END 2016-05-05 13:30 | disposition home or self-care (01) | DRG 74 ==
LOC: ED SRH 16:04 → TRANS SRH 19:35 → ACUTE2 SRH 20:30
PROVIDERS: ADMIT Emergency Medicine
DX: M54.12 Radiculopathy, cervical region (principal); R07.89 Other chest pain; R91.1 Solitary pulmonary nodule; F17.200 Nicotine dependence, unspecified, uncomplicated
CPT/HCPCS: 90004; 90074; 90100; 90616; 91320; 91556; 92235; 92530; 92610; 92720; 94001; 94060; 95059